=== PATIENT | male | born 1995 | race Two or more races ===

== ENCOUNTER 2017-09-15 19:05 | Inpatient (IN) | payer OTHER ==
[~2017-09-15] VITALS: Ht 177.8 cm; Wt 82.1 kg
--- NOTE | 2017-09-15 19:50 | NUR ---
BLOOD PICKED UP BY CHEMICAL COMPOUNDER HELPER
[2017-09-15 19:53] LABS: BASOPHILS # (AUTO) 0.1 /CMM (0.0-0.2); BASOPHILS % (AUTO) 1.7 % (0.0-2.0); EOSINOPHILS % (AUTO) 2.8 % (0.0-6.0); HEMATOCRIT 43 % (39-51); HEMOGLOBIN 14.4 g/dL (13.5-17.5); LYMPHOCYTES # (AUTO) 1.4 /CMM (0.8-4.8); LYMPHOCYTES % (AUTO) 17.4 % (20.0-44.0); MEAN CORPUSCULAR HGB CONC 34 g/dl (31.0-36.0); MEAN CORPUSCULAR VOLUME 91 fL (80-96); MONOCYTES # (AUTO) 0.8 /CMM (0.1-1.30); MONOCYTES % (AUTO) 9.6 % (2.0-12.0); NEUTROPHILS # (AUTO) 5.8 /CMM (1.8-8.9); NEUTROPHILS % (AUTO) 68.5 % (43.0-81.0); PLATELET COUNT (AUTO) 289 /CMM (150-450); RDW COEFFICIENT OF VARIATION 11.9 (11.5-15.0); RED BLOOD CELL COUNT(AUTO) 4.72 MIL/uL (4.5-6.0); WHITE BLOOD COUNT (AUTO) 8.3 K/uL (4.3-11.0)
--- NOTE | 2017-09-15 19:53 | NUR ---
CALLED [facility] PATTERN TECHNICIAN WAS PAGED.
--- NOTE | 2017-09-15 20:00 | NUR ---
[address]IGHW[address] PATROL OFFICER AT BEDSIDE
[2017-09-15 20:11] LABS: INR 0.9 (0.87-1.13)
[2017-09-15 20:41] LABS: CALCIUM, SERUM 9.3 mg/dL (8.5-10.1); CREATININE 0.7 mg/dL (0.6-1.3); POTASSIUM 4.2 mmol/L (3.5-5.1)
[2017-09-15] MEDS ORDERED: INSU100I26 SQ (20:55)
[2017-09-15] MEDS ORDERED: DOCU50LI17 GT (20:55)
[2017-09-15] MEDS ORDERED: METF-440 (20:55)
[2017-09-15] MEDS ORDERED: NEO/5DRO3 EACHEYE (20:55)
[2017-09-15] MEDS ORDERED: LEVE100S GT (20:55)
[2017-09-15] MEDS ORDERED: GLIM4TAB2 GT (20:55)
[2017-09-15] MEDS ORDERED: CALC-491 PO (20:55)
[2017-09-15] MEDS ORDERED: QUET50TA GT (20:55)
[2017-09-15] MEDS ORDERED: QUET100T GT (20:55)
[2017-09-15] MEDS ORDERED: PROP40TA7 GT (20:55)
[2017-09-15] MEDS ORDERED: BACL10TA GT (20:55)
--- NOTE | 2017-09-15 21:09 | NUR ---
MS RN OPENING NOTES: RECEIVED PT FROM ED DEPARTMENT. PT ARRIVED WITH A CAST ON LEFT SHOULDER/ARM. PT HAS IV ON L HAND #18G AND IS PATENT AND INTACT. PT IS S/L. PT CAME WITH MITTEN RESTRAINT ON R ARM PT IS VERY COMBATIVE AND HITTING STAFF MEMBERS. PT IS A/OX1. PT WITH SLURRED SPEECH. PT VERBALLY ABUSIVE AND COMBATIVE. PT ON ROOM AIR. BED ALARM ACTIVATED. CALL LIGHT WITHIN PT'S REACH. BED KEPT IN LOW, LOCKED POSITION, AND SIDE RAILS X 2UP. WILL CONTINUE TO MONITOR PT.
[2017-09-15 21:30] VITALS: BP 118/63
--- NOTE | 2017-09-15 22:11 | NUR ---
MS RN NOTES: INFORMED DR. JETT THAT PT IS VERBALLY ABUSIVE AND COMBATIVE WITH HIS R ARM. GOT ORDER FOR RIGHT WRIST RESTRAINTS.
[2017-09-15] MEDS ORDERED: Z GUARD REMEDY 2 OZ OINT TP PRN (22:30)
[2017-09-15] MEDS ORDERED: ONDANSETRON HCL/PF 4 MG/2 ML VIAL IVP PRN (22:30)
--- NOTE | 2017-09-15 22:50 | NUR ---
RN NOTES: NG TUBE INSERTED IN RIGHT NARE. WILL ORDER CHEST X RAY FOR CONFIRMATION.
--- NOTE | 2017-09-16 01:06 | NUR ---
MS RN NOTES: AFTER CHEST X RAY CONFIRMED, PULLED OUT A COUPLE INCHES OF TUBE OUT AND RETAPED. AUSCULTATED WITH 2 OTHER RNS TO CONFIRM SWOOSHING SOUND.
--- NOTE | 2017-09-16 01:12 | NUR ---
MS RN NOTES: [phone] AND SPOKE WITH POLI HAN. GOT INFORMATION THAT PT IS TAKING GLUCERNA 4G AT 55ML/HR.
[2017-09-16] MEDS ORDERED: GLUCERNA 1.2 1,000 ML BOTTLE NG PRN (02:00)
--- NOTE | 2017-09-16 02:00 | NUR ---
MS RN NOTES: STARTED GLUCERNA FEEDING AT 20ML/HR. WILL CONTINUE TO MONITOR AND INCREASE TOLERATED. GOAL IS 55ML/HR.
[2017-09-16 06:08] LABS: BASOPHILS % (AUTO) 0.2 % (0.0-2.0); EOSINOPHILS % (AUTO) 1.6 % (0.0-6.0); HEMATOCRIT 45 % (39-51); HEMOGLOBIN 14.9 g/dL (13.5-17.5); LYMPHOCYTES # (AUTO) 1.4 /CMM (0.8-4.8); LYMPHOCYTES % (AUTO) 18.2 % (20.0-44.0); MEAN CORPUSCULAR HGB CONC 33 g/dl (31.0-36.0); MEAN CORPUSCULAR VOLUME 95 fL (80-96); MONOCYTES # (AUTO) 0.9 /CMM (0.1-1.30); MONOCYTES % (AUTO) 10.8 % (2.0-12.0); NEUTROPHILS # (AUTO) 5.5 /CMM (1.8-8.9); NEUTROPHILS % (AUTO) 69.2 % (43.0-81.0); PLATELET COUNT (AUTO) 247 /CMM (150-450); RDW COEFFICIENT OF VARIATION 12.8 (11.5-15.0); RED BLOOD CELL COUNT(AUTO) 4.67 MIL/uL (4.5-6.0); WHITE BLOOD COUNT (AUTO) 7.9 K/uL (4.3-11.0)
[2017-09-16 06:28] LABS: ALBUMIN 3.8 g/dL (3.4-5.0); BILIRUBIN,TOTAL 0.4 mg/dL (0.2-1.0); CALCIUM, SERUM 9.2 mg/dL (8.5-10.1); CREATININE 0.7 mg/dL (0.6-1.3); MAGNESIUM 1.8 mg/dL (1.8-2.4); PHOSPHORUS 3.2 mg/dL (2.5-4.9); POTASSIUM 3.9 mmol/L (3.5-5.1); TOTAL PROTEIN, SERUM 7.6 g/dL (6.4-8.2)
--- NOTE | 2017-09-16 06:48 | NUR ---
MS RN CLOSING NOTES: ALL NEEDS WERE ATTENDED AND ANTICIPATED. PT KEPT CLEAN, DRY, AND COMFORTABLE. PT HAS R SOFT WRIST RESTRAINT PT IS ATTEMPTING TO PULL OUT NG TUBE AND IS COMBATIVE WELL. PT IS AWAKE AT THIS TIME AND IS IN SEMI-LEBLANC'S POSITION. PT IS A/OX1. PT ON NG TUBE FEEDING (GLUCERNA) AT 30ML/HR. NO RESIDUAL NOTED. PT TOLERATING WELL. BED ALARM ACTIVATED. PT PLACED ON BILATERAL SCDS. IV REMAINS INTACT. CALL LIGHT WITHIN PT'S REACH. BED KEPT IN LOW, LOCKED POSITION, AND SIDE RAILS X 2UP. WILL ENDORSE TO AM NURSE FOR ANTONIO.
[2017-09-16 08:00] VITALS: BP 114/68
[2017-09-16] MEDS: INSULIN GLARGINE, 100 UNIT/ML CARTRIDGE SQ SCH (08:10)
[2017-09-16] MEDS: NEO/POLY-B/DEXAM OPHTH SUSP 5 ML BOTTLE EACHEYE SCH ×3 (08:12→17:00)
--- NOTE | 2017-09-16 08:13 | NUR ---
MS RN NOTES PATIENT IS AWAKE, A/O X1. BREATHING ON ROOM AIR, NO SOB. IVC IN LEFT HAND PATENT AND INTACT, FLUSHES WELL. RIGHT NARE PRESENCE OF NGT, WITH FEEDING GLUCERNA. MAINTAIN HOB ELEVATED. LEFT ARM WITH CAST IN PLACE, LEFT SIDED HEMIPLEGIA. RIGHT HAND SOFT WRIST RESTRAINT, CIRCULATION IN RIGHT HAND INTACT, ABLE TO MOVE WITHOUT DIFFICULTY. PATIENT IS UNCOOPERATIVE, UNABLE TO ADMINISTER EYE DROP, MUMBLING WORDS, SPEECH UNCLEAR, KICK HIS RIGHT LEGS IN THE AIR. SAFETY MEASURE IN PLACE. WILL CONT TO MONITOR.
[2017-09-16] MEDS ORDERED: LEVETIRACETAM SOL (5 ML) 100 MG/ML UDC NG SCH (09:00)
[2017-09-16] MEDS ORDERED: METFORMIN 500 MG TABLET NG SCH (09:00)
[2017-09-16] MEDS ORDERED: QUETIAPINE FUMARATE 25 MG TABLET NG SCH (09:00)
[2017-09-16] MEDS ORDERED: CALCIUM CARB 250MG /VITAMIN D 1 UDTAB NG SCH (09:00)
[2017-09-16] MEDS ORDERED: DOCUSATE SODIUM LIQ 100 MG/10 ML UDC NG SCH (09:00)
[2017-09-16] MEDS ORDERED: GLIMEPIRIDE 4 MG TABLET NG SCH (09:00)
[2017-09-16] MEDS: PROPRANOLOL HCL 40 MG TABLET NG SCH ×2 (09:20→12:49)
[2017-09-16] MEDS: BACLOFEN (10 MG) 10 MG TABLET NG SCH ×2 (09:20→12:49)
--- NOTE | 2017-09-16 09:43 | NUR ---
PATIENT IS SEEN BY LIDA REYNOSO, HOLD NGT FEEDING AT THIS TIME, GI TO FOLLOW.
--- NOTE | 2017-09-16 10:12 | NUR ---
WOUND CARE CONSULT: PT PRESENTS WITH PATCHY BLANCHABLE PINK/RED AREAS TO LEFT HEEL AND FOOT/LOWER LEG, PRESENT ON ADMISSION. DEFER TO MD FOR SKIN CONDITION. HEELS FLOATED. SACRAL SCARRING NOTED. PT HAS CAST WITH BRACE TO LEFT ARM WITH BROWN DRAINAGE NOTED. RECOMMEND ORTHO CONSULT. PT IS INCONTINENT. CURRENT NIHARIKA SCORE IS 12 AND PT HAS LEFT SIDED HEMIPLEGIA. PT COMBATIVE WITH HIS RT ARM AND LEG AT TIMES. ISOFLEX LOW AIRLOSS BED TO BE PLACED. ALL SKIN PROTECTION RECOMMENDATIONS DISCUSSED WITH NURSING STAFF. WILL SEE PRN. MD IN AGREEMENT WITH PLAN OF CARE. Addendum: 09/16/17 at 1017 by KILLIAN MELLO WNDNU Amended: Links added.
--- NOTE | 2017-09-16 15:56 | NUR ---
S/P EGD WITH PEG PLACEMENT BY DR. PANIAGUA TODAY, PER MD OK TO USE PEG FOR FEEDS AT 2100, AND OK TO USE PEG NOW FOR MEDS. PATIENT STILL IN THE OR, AWAITING TRANSFER BACK TO THE UNIT MED SURG.
[2017-09-16 16:00] VITALS: BP 114/68
[2017-09-16] MEDS ORDERED: PHARMACY TO CHANGE PO MEDS TO GT/NG XX PRN ×2 (16:30→17:00)
[2017-09-16] MEDS: BACLOFEN (10 MG) 10 MG TABLET PEG SCH (16:40)
[2017-09-16] MEDS: METFORMIN 500 MG TABLET PEG SCH (16:41)
[2017-09-16] MEDS: GLIMEPIRIDE 4 MG TABLET PEG SCH (16:41)
[2017-09-16] MEDS: CALCIUM CARB 250MG /VITAMIN D 1 UDTAB PEG SCH (16:41)
[2017-09-16] MEDS: LEVETIRACETAM SOL (5 ML) 100 MG/ML UDC PEG SCH (16:42)
[2017-09-16] MEDS: PROPRANOLOL HCL 40 MG TABLET PEG SCH (16:42)
[2017-09-16] MEDS: QUETIAPINE FUMARATE 25 MG TABLET GT SCH (17:07)
[2017-09-16] MEDS ORDERED: QUETIAPINE FUMARATE 100 MG TABLET NG SCH (18:00)
--- NOTE | 2017-09-16 18:20 | NUR ---
MS RN CLOSING NOTES PATIENT IS UNCOOPERATIVE, NON COMPLIANT WITH MEDICATION AND TREATMENT, CONFUSED AND AGITATED WITH AGGRESSIVE BEHAVIOR AT TIMES, ATTEMPTING TO KICK HIS RIGHT LEG/FOOT DURING CARE, SOFT WRIST RESTRAINT RIGHT HAND IN PLACE, MONITORED FOR SKIN/CIRCULATION Q 2HR, INTACT. ABDOMEN PRESENCE OF GTUBE, CLAMPED AT THIS TIME. POST EGD WITH PEG PLACEMENT TODAY, ABDOMINAL BINDER IN PLACE. LEFT ARM/SHOULDER CAST INTACT, FOR ORTHO CONSULT. OK TO USE PEG FOR FEEDS AT [address] PAN[address]AGUA/GI. SAFETY MEASURE IN PLACE, MAINTAINED ASPIRATION PRECAUTION. ISOFLEX MATTRESS PROVIDED. CALL LIGHT WITHIN REACH. WILL ENDORSE TO ONCOMING RN.
--- NOTE | 2017-09-16 19:30 | NUR ---
MS RN OPENING NOTES: PATIENT IN BED, AWAKE BUT ONLY MUMBLES INCOHERENTLY, ON ROOM AIR, BREATHING EVEN AND UNLABORED. APPEARS CALM AT THIS TIME. NOTED R HAND WITH SOFT WRIST RESTRAINT, CHECKED HAND FOR CIRCULATION, CAP REFILL LESS THAN 3 SEC, NO SIGNS OF SKIN BREAKDOWN NOTED. NOTED GTUBE, CLAMPED AT THIS TIME, WITH ORDERS FOR FEEDING TO BE RESTARTED AT 2100 PM TONIGHT. ABDL BINDER IN PLACE. PROVIDED FOR COMFORT AND SAFETY. BED IN LOWEST AND LOCKED POSITION, SIDERAILS UP X 3, BED ALARMS ON. WILL CONT TO MONITOR.
[2017-09-16 20:00] VITALS: BP 110/70
[2017-09-16 20:03] VITALS: BP 110/70
[2017-09-16] MEDS: GLUCERNA 1.2 1,000 ML BOTTLE PEG PRN (21:27)
--- NOTE | 2017-09-16 21:30 | NUR ---
RN NOTES: PATIENT HAS ACTIVE BOWEL SOUNDS, AND GT CHECKED FOR PATENCY BY ASPIRATING, AND FLUSHING. TUBE FEEDING OF GLUCERNA RESTARED AT 30 ML/HR FOR NOW, WILL CHECK BACK LATER TO SEE IF PATIENT IS ABLE TO TOLERATE FEEDING BEFORE INCREASING RATE. MAINTAINED HOB ELEVATED.
--- NOTE | 2017-09-17 | NUR ---
RN NOTES: RECHECKED GT AT THIS TIME FOR RESIDUALS, NOTED 40 CC. PATIENT ON 30 ML/HR CURRENTLY, CONTINUED AT THIS RATE AND WILL RECHECK AFTER 2 HRS. MAINTAINED HOB ELEVATED.
--- NOTE | 2017-09-17 02:00 | NUR ---
RN NOTES: RECHECKED GT RESIDUAL AT 50 ML THIS TIME. BOWEL SOUNDS ACTIVE. KEPT ON 30 ML/HR RATE. MAINTAINED HOB ELEVATED. WILL CONT TO MONITOR.
[2017-09-17] MEDS: INSULIN GLARGINE, 100 UNIT/ML CARTRIDGE SQ SCH (07:13)
--- NOTE | 2017-09-17 07:30 | NUR ---
MS RN OPENING NOTES RECEIVED PATIENT IN STABLE CONDITION. IN NO APPARENT DISTRESS. BEDSIDE RAILS ARE UPX2. BED IS LOCKED AND LOWERED. CALL LIGHT IS WITHIN REACH. IV LINE IS INTACT AND PATENT. WILL CONTINUE TO MONITOR.
--- NOTE | 2017-09-17 07:44 | NUR ---
MS RN CLOSING NOTES: PATIENT IN BED, AOX1, ON ROOM AIR, BREATHING EVEN AND UNLABORED. WITH GT FEEDING AT 55 ML/HR, RESIDUAL NOTED TO BE AT 10 ML. AM BLOOD SUGAR CHECKED AT 198 MG/DL, ADMINISTERED LANTUS 18 U SQ ACB. DUE MEDS GIVEN. MORNING CARE DONE. PROVIDED FOR COMFORT AND SAFETY. BED IN LOWEST AND LOCKED POSITION, SIDERAILS UP X 3, BED ALARMS ON. WILL ENDORSE TO AM RN FOR ANTONIO.
[2017-09-17 08:00] VITALS: BP 124/75
[2017-09-17] MEDS: GLIMEPIRIDE 4 MG TABLET PEG SCH ×2 (10:47→17:18)
[2017-09-17] MEDS: METFORMIN 500 MG TABLET PEG SCH ×2 (10:47→17:18)
[2017-09-17] MEDS: PROPRANOLOL HCL 40 MG TABLET PEG SCH ×3 (10:47→17:00)
[2017-09-17] MEDS: QUETIAPINE FUMARATE 25 MG TABLET GT SCH ×2 (10:47→17:18)
[2017-09-17] MEDS: CALCIUM CARB 250MG /VITAMIN D 1 UDTAB PEG SCH ×2 (10:47→17:18)
[2017-09-17] MEDS: DOCUSATE SODIUM LIQ 100 MG/10 ML UDC PEG SCH (10:48)
[2017-09-17] MEDS: LEVETIRACETAM SOL (5 ML) 100 MG/ML UDC PEG SCH ×2 (10:48→17:19)
[2017-09-17] MEDS: BACLOFEN (10 MG) 10 MG TABLET PEG SCH ×3 (10:48→17:19)
[2017-09-17] MEDS: NEO/POLY-B/DEXAM OPHTH SUSP 5 ML BOTTLE EACHEYE SCH ×3 (10:48→17:18)
--- NOTE | 2017-09-17 12:30 | NUR ---
WOUND CARE CONSULT: PT SEEN FOR LEFT ELBOW WOUND. SPLINT WAS REMOVED BY ORTHO P.A. 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 PT WAS NOTED TO HAVE ORTHO SPLINT WITH DRAINAGE AT ELBOW REGION UPON ADMISSION. RECOMMEND SURGICAL CONSULT. PT HAS WHITE PLASTIC BRACE ON SHOULDER AND UPPER ARM. DISCUSSED WOUND CARE RECOMMENDATIONS WITH NURSING STAFF. PT ON RANDELL ISOFLEX LOW AIRLOSS BED. ALL SKIN PROTECTION MEASURES IN PLACE. WILL SEE PRN. WOOTEN IN AGREEMENT WITH PLAN OF CARE. Addendum: 09/17/17 at 1234 by KILLIAN MELLO WNDNU Amended: Links added.
--- NOTE | 2017-09-17 14:21 | NUR ---
INFORMED DR. TAYLA LINDQUIST ABOUT CRITICAL LAB BLOOD SUGAR VALUE. GAVE 15 UNITS OF INSULIN TO THE PATIENT. PATIENT REFUSES TO HAVE BLOOD SUGAR RECHECKED. WILL CONTINUE TO MONITOR.
[2017-09-17 16:00] VITALS: BP 103/57
--- NOTE | 2017-09-17 18:45 | NUR ---
MS RN CLOSING NOTES PATIENT IS IN STABLE CONDITION. IN NO APPARENT DISTRESS. BEDSIDE RAILS ARE UPX2. BED IS LOCKED AND LOWERED. CALL LIGHT IS WITHIN REACH. IV LINE IS INTACT AND PATENT. WILL ENDORSE CARE TO BUILDING DISMANTLER NURSE FOR ANTONIO.
--- NOTE | 2017-09-17 19:50 | NUR ---
RN MS OPENING NOTES RECEIVED PATIENT IN BED, ALERT AND ORIENTED X 1 , RESPIRATIONS EVEN AND UNLABORED WITH EQUAL RISE AND FALL OF CHEST, GTUBE INTACT AND FLOWING WELL, WITH PROPER PLACEMENT, HEAD OF BED ELEVATED FOR ASPIRATION PRECAUTIONS. NOTED WITH RIGHT WRIST SOFT RESTRAINTS, ABDOMINAL BINDER IN PLACE FOR SAFETY PRECAUTIONS, NOTED LEFT UPPER ARM WITH SPLINT. INTACT, IV SITE TO LEFT HAND INTACT AND PATENT, NO REDNESS,NO INFILTRATION PRESENT, NO FACIAL GRIMACING NOTED AT THIS TIME. ALL NEEDS ATTENDED AT THIS TIME, PATIENT REMAINS CLEAN AND DRY AND COMFORTABLE WILL CONTINUE TO MONITOR. ORIENTED TO STAFF AND CALL LIGHT , CALL LIGHT KEPT WITHIN REACH.
[2017-09-17 19:59] VITALS: BP 123/69
[2017-09-17 20:00] VITALS: BP 123/69
[2017-09-17] MEDS: GLUCERNA 1.2 1,000 ML BOTTLE PEG PRN (22:39)
[2017-09-18] MEDS: INSULIN GLARGINE, 100 UNIT/ML CARTRIDGE SQ SCH (06:54)
--- NOTE | 2017-09-18 07:20 | NUR ---
MSRN OPENING NOTES. PT RECEIVED A&0X1, REPORTEDLY AT BASELINE MS. PT WITH R SWR AND MITTEN R/.T REMOVAL OF LINES AND HITTING STAFF. PT TOLERATING ROOM AIR WITHOUT S/S RESP DISTRESS. PT WITHOUT S/S OF PAIN OR DISCOMFORT. PT REPOSITIONED. PT WITH L ARM/SHOULDER SPLINT AND OFFLOADING CONTINUED. PT WITH IVC AT L [facility] INTACT AND SALINE FLUSH PATENT. G TUBE AND ABDOMINAL BINDER INTACT AND OPERATIONAL. BED IN LOWEST LOCKED POSITION WITH HOB ELEVATED, HANDRAILX4 AND CALL LUQUE WITHIN REACH. WILL CONTINUE TO MONITOR CLOSELY.
--- NOTE | 2017-09-18 07:21 | NUR ---
RN MS CLOSING NOTES PATIENT IN BED, ALERT AND ORIENTED X 1 , RESPIRATIONS EVEN AND UNLABORED WITH EQUAL RISE AND FALL OF CHEST, GTUBE INTACT AND FLOWING WELL, WITH PROPER PLACEMENT, HEAD OF BED ELEVATED FOR ASPIRATION PRECAUTIONS. NOTED WITH RIGHT WRIST SOFT RESTRAINTS, ABDOMINAL BINDER IN PLACE FOR SAFETY PRECAUTIONS, NOTED LEFT UPPER ARM WITH SPLINT. INTACT, IV SITE TO LEFT HAND INTACT AND PATENT, NO REDNESS,NO INFILTRATION PRESENT, NO FACIAL GRIMACING NOTED AT THIS TIME. ALL NEEDS ATTENDED AT THIS TIME, PATIENT REMAINS CLEAN AND DRY AND COMFORTABLE WILL CONTINUE TO MONITOR. DRESSING CHANGED TO LEFT ELBOW DUE TO SOILAGE, TOLERATED WELL, CALL LIGHT KEPT WITHIN REACH ALL NEEDS ATTENDED WILL ENDORSE TO NEXT SHIFT PATIENT REMAINS COMFORTABLE AT THIS TIME.
[2017-09-18 08:00] VITALS: BP 110/74
[2017-09-18] MEDS: LEVETIRACETAM SOL (5 ML) 100 MG/ML UDC PEG SCH ×2 (09:35→17:22)
[2017-09-18] MEDS: METFORMIN 500 MG TABLET PEG SCH ×2 (09:35→17:00)
[2017-09-18] MEDS: GLIMEPIRIDE 4 MG TABLET PEG SCH ×2 (09:35→17:00)
[2017-09-18] MEDS: CALCIUM CARB 250MG /VITAMIN D 1 UDTAB PEG SCH ×2 (09:35→17:22)
[2017-09-18] MEDS: BACLOFEN (10 MG) 10 MG TABLET PEG SCH ×3 (09:35→17:22)
[2017-09-18] MEDS: DOCUSATE SODIUM LIQ 100 MG/10 ML UDC PEG SCH (09:35)
[2017-09-18] MEDS: PROPRANOLOL HCL 40 MG TABLET PEG SCH ×3 (09:36→17:22)
[2017-09-18] MEDS: NEO/POLY-B/DEXAM OPHTH SUSP 5 ML BOTTLE EACHEYE SCH ×3 (09:37→17:00)
[2017-09-18] MEDS: QUETIAPINE FUMARATE 25 MG TABLET GT SCH ×2 (09:37→17:22)
[2017-09-18 12:40] LABS: BASOPHILS % (AUTO) 0.2 % (0.0-2.0); EOSINOPHILS % (AUTO) 1.1 % (0.0-6.0); HEMATOCRIT 42 % (39-51); LYMPHOCYTES # (AUTO) 1.2 /CMM (0.8-4.8); LYMPHOCYTES % (AUTO) 12.3 % (20.0-44.0); MEAN CORPUSCULAR HGB CONC 33 g/dl (31.0-36.0); MEAN CORPUSCULAR VOLUME 95 fL (80-96); MONOCYTES # (AUTO) 1.1 /CMM (0.1-1.30); MONOCYTES % (AUTO) 10.9 % (2.0-12.0); NEUTROPHILS # (AUTO) 7.3 /CMM (1.8-8.9); NEUTROPHILS % (AUTO) 75.5 % (43.0-81.0); PLATELET COUNT (AUTO) 227 /CMM (150-450); RDW COEFFICIENT OF VARIATION 12.6 (11.5-15.0); RED BLOOD CELL COUNT(AUTO) 4.41 MIL/uL (4.5-6.0); WHITE BLOOD COUNT (AUTO) 9.7 K/uL (4.3-11.0)
[2017-09-18] MEDS: CEFTRIAXONE 2 G in IV NS 0.9% 100 ML IV SCH (13:40)
[2017-09-18] MEDS ORDERED: FEE PK DOSING 1 MIN EA MC ONE (13:51)
[2017-09-18 14:04] LABS: CALCIUM, SERUM 9.2 mg/dL (8.5-10.1); CREATININE 0.7 mg/dL (0.6-1.3); POTASSIUM 3.8 mmol/L (3.5-5.1)
[2017-09-18] MEDS: VANCOMYCIN 1.25 GM in IV D5W 500 ML IV SCH ×2 (15:16→22:19)
[2017-09-18 16:00] VITALS: BP 111/65
[2017-09-18] MEDS ORDERED: IOHEXOL-300 100 ML VIAL IV ONE (17:58)
[2017-09-18] MEDS ORDERED: CT SWABBABLE VALVE TRANS SET 1 EA INFUS.SET MC ONE (17:58)
[2017-09-18] MEDS ORDERED: IV NS 0.9% 500 ML IV ONE (17:58)
--- NOTE | 2017-09-18 18:00 | NUR ---
MSRN NOTES. PT TO RADIOLOGY.
--- NOTE | 2017-09-18 18:39 | NUR ---
MSRN NOTES. PT RETURNED FROM RADIOLOGY.
--- NOTE | 2017-09-18 18:39 | NUR ---
MSRN CLOSING NOTES. PT REMAINS A&0X1. PT WITH R SWR AND MITTEN R/.T REMOVAL OF LINES AND HITTING STAFF. PT TOLERATING ROOM AIR WITHOUT S/S RESP DISTRESS. PT WITHOUT S/S OF PAIN OR DISCOMFORT. PT WITH L ARM/SHOULDER SPLINT AND OFFLOADING CONTINUED. PT WITH IVC AT L [facility] INTACT AND OPERATIONAL AND IVC AT RIGHT UA/SHOULDER G#18 SL. G TUBE AND ABDOMINAL BINDER INTACT AND OPERATIONAL, RESIDUALS 5CC DURING SHIFT. BED IN LOWEST LOCKED POSITION WITH HOB ELEVATED, HANDRAILX4 AND CALL LUQUE WITHIN REACH. WILL ENDORSE TO NIGHT NURSE AT BEDSIDE FOR ANTONIO.
--- NOTE | 2017-09-18 19:30 | NUR ---
PT A&0X1. PT WITH RIGHT WRIST SOFT RESTRAIN AND RIGHT HAND MITTEN. PT ON ROOM AIR WITHOUT S/S RESP DISTRESS. PT WITHOUT S/S OF PAIN OR DISCOMFORT. PT HAS PEG WITH ON ONGOING TUBE FEEDING OF GLUCERNA 1.2 55ML/H TOLERATED WELL WITH RESIDUAL 30 ML.ABDOMEN SOFT TO TACH WITH ACTIVE BS WITH ABD BINDER IN PLACE POSITION WITH HOB ELEVATED, HANDRAIL X3, BED IN LOW POSITION, LOCKED AND CALL LUQUE WITHIN REACH.
[2017-09-18 20:00] VITALS: BP 116/73
--- NOTE | 2017-09-18 20:10 | NUR ---
RN NOTES: RECEIVED PT WITH RIGHT HAND MITTENS AND RIGHT SOFT WRIST RESTRAINT IN PLACED,PT'S RIGHT ARM IS VERY STRONG THAT HE TRIES TO HIT COOPERATIVE EDUCATION DIRECTOR AND CHAPLAINCY WHEN PROVIDING CARE, ALSO HE MANAGE TO PULL OUT HIS GTUBE,PT IS ALERT BUT CONFUSED, SLURRED SPEECH BUT MOST OF THE TIME NON VERBAL, PT EVEN TRIES TO KICK STAFF. RESTRAINT PROTOCOL FOLLOWED, PT NOTED TO HAVE GOOD CAPILLARY REFILL, ABLE TO MOVE AND WIGGLE ARMS AND HAND, NO S/S OF IMPEDIMENT IN CIRCULATION NOTED. LEFT SHOULDER NOTED TO HAVE ENAMORADO BRACE /SPLINT IN PLACED.
[2017-09-18 20:22] VITALS: BP 116/73
--- NOTE | 2017-09-18 20:30 | NUR ---
RN NOTES: ABDOMINAL BINDER IN PLACED PROTECTION FOR PT NOT TO PULL OUT GTUBE.
--- NOTE | 2017-09-18 21:00 | NUR ---
RN NOTES: KEPT SIDE RAILS PADDED, SUCTION SET UP SECURED, PT HAS HX OF SEIZURE. ALSO PER REPORT TO HOLD METFORMIN X48 R/T IV CONTRAST.
[2017-09-19] MEDS: GLUCERNA 1.2 1,000 ML BOTTLE PEG PRN ×2 (01:47→20:54)
--- NOTE | 2017-09-19 04:00 | NUR ---
RN NOTES: WOUND CARE PERFORMED, WOUND CULTURE DONE, SENT TO LAB ORDERED BY DR STEPHEN
--- NOTE | 2017-09-19 05:45 | NUR ---
RN NOTES: REMOVED RIGHT HAND MITTEN, PT BEHAVE FOR AN HOUR,DIDNT KICK OR HIT STAFF WHILE DOING BED BATH AND DRESSING CHANGES, WILL LEAVE SOFT WRIST RESTRAINT ON THE RIGHT ARM, TO PREVENT PT FROM PULLING OUT PEG TUBE AND IV ACCESS, RESTRAINT PROTOCOL FOLLOWED.
[2017-09-19] MEDS: INSULIN GLARGINE, 100 UNIT/ML CARTRIDGE SQ SCH (06:14)
[2017-09-19] MEDS: VANCOMYCIN 1.25 GM in IV D5W 500 ML IV SCH ×3 (06:29→23:18)
--- NOTE | 2017-09-19 06:49 | NUR ---
RN CLOSING NOTES PT REMAINS A/O X1, ON ROOM AIR WITH NO DISTRESS NOTED. PT G-TUBE FEEDING GLUCERNA 1.2 RATE 55ML/HR WELL TOLERATES WITH RESIDUAL 10 ML. PT RIGHT WRIST SOFT RESTRAINT IN PLACE. NO S/S OF IMPEDIMENT IN CIRCULATION NOTED. LEFT SHOULDER ENAMORADO BRACE REMAIN IN PLACE, DRESSING ON LEFT ELBOW REMAINS C/D/I.VS ARE STABLE, NEEDS ATTENDED. BED IN LOW AND LOCKED POSITION, CALL LIGHT WITHIN EASY REACH. WILL ENDORSE TO DAY RN FOR CONTINUITY OF CARE.
[2017-09-19 08:00] VITALS: BP 110/76
--- NOTE | 2017-09-19 08:00 | NUR ---
m/s forge press operator: initial assessment received pt in bed awake, speech garble, unable to understand. released and repositioned right wrist restraint for circulation. pt easily agitated and resistive care. reality orientation provided prn. hob elevated. tolerating g-tube feeding. no residual obtained. will continue to monitor.
[2017-09-19] MEDS: LEVETIRACETAM SOL (5 ML) 100 MG/ML UDC PEG SCH ×2 (09:08→16:10)
[2017-09-19] MEDS: QUETIAPINE FUMARATE 25 MG TABLET GT SCH ×2 (09:09→16:09)
[2017-09-19] MEDS: CALCIUM CARB 250MG /VITAMIN D 1 UDTAB PEG SCH ×2 (09:09→16:10)
[2017-09-19] MEDS: DOCUSATE SODIUM LIQ 100 MG/10 ML UDC PEG SCH (09:09)
[2017-09-19] MEDS: PROPRANOLOL HCL 40 MG TABLET PEG SCH ×3 (09:09→16:10)
[2017-09-19] MEDS: GLIMEPIRIDE 4 MG TABLET PEG SCH ×2 (09:09→16:09)
[2017-09-19] MEDS: BACLOFEN (10 MG) 10 MG TABLET PEG SCH ×3 (09:09→16:10)
[2017-09-19] MEDS: NEO/POLY-B/DEXAM OPHTH SUSP 5 ML BOTTLE EACHEYE SCH ×3 (09:10→16:13)
--- NOTE | 2017-09-19 10:00 | NUR ---
m/s welder experimental: notes pt remains resistive to care during am care rendered. pt starts to grab, scratch, and hit staff during care. reality orientation provided prn. will continue to monitor.
[2017-09-19] MEDS: CEFTRIAXONE 2 G in IV NS 0.9% 100 ML IV SCH (13:10)
--- NOTE | 2017-09-19 14:18 | NUR ---
m/s equip tech: notes vanco trough drawn at this time.
--- NOTE | 2017-09-19 15:30 | NUR ---
m/s welding machine operator electro gas: notes grandmother visiting at this time. pt appears comfortable and in no apparent distress.
--- NOTE | 2017-09-19 15:52 | NUR ---
m/s slate splitter: notes vanco trough=14 resulted. carla (pharmacist) notified and made aware. awaiting for vanco ivpb med.
[2017-09-19 16:00] VITALS: BP 105/70
[2017-09-19] MEDS: LACTOBACILLUS RHAMNOSUS GG 1 EACH CAP.SPRINK PO SCH (16:10)
--- NOTE | 2017-09-19 17:00 | NUR ---
m/s director toxicology: notes grandmother left at this time. pt sounds asleep. released and repositioned right wrist restraint. hob elevated. tolerating g-tube feeding. will continue to monitor.
--- NOTE | 2017-09-19 19:00 | NUR ---
m/s marble polisher hand: notes report given to elmer (rn) for continuity of care.
--- NOTE | 2017-09-19 19:30 | NUR ---
MS RN OPENING NOTES PT A&0X1. PT WITH RIGHT WRIST SOFT RESTRAIN . PT ON ROOM AIR WITHOUT S/S RESP DISTRESS. PT WITHOUT S/S OF PAIN OR DISCOMFORT. PT HAS PEG WITH ON ONGOING TUBE FEEDING OF GLUCERNA 1.2 60 ML/H.ABDOMEN SOFT TO TACH WITH ACTIVE BS WITH ABD BINDER IN PLACE POSITION WITH HOB ELEVATED, HANDRAIL X3, BED IN LOW POSITION, LOCKED AND CALL LIGHT WITHIN REACH.
[2017-09-19 20:00] VITALS: BP 134/75
--- NOTE | 2017-09-19 20:55 | NUR ---
G-TUBE RESIDUAL CHECKED , NO RESIDUAL NOTED , G-TUBE FLUSHING WELL. INCREASED FEEDING RATE F TO 65 ML/H THIS IS THE GOAL FOR NUTRITION. WILL MONITOR HOW PT WILL TOLERATE
[2017-09-20] MEDS: INSULIN GLARGINE, 100 UNIT/ML CARTRIDGE SQ SCH (06:06)
--- NOTE | 2017-09-20 06:46 | NUR ---
RN CLOSING NOTES PT REMAINS A/O X1, ON ROOM AIR WITH NO DISTRESS NOTED. PT G-TUBE REMAINS IN PLACED, ABDOMINAL BINDER IN PLACED, RECEIVING FEEDING GLUCERNA 1.2 RATE 65ML/HR WELL TOLERATES WITH RESIDUAL 10 ML. PT RIGHT WRIST SOFT RESTRAINT IN PLACE. NO S/S OF IMPEDIMENT IN CIRCULATION NOTED.IV LINE LH G18 INTACT AND PATENT. LEFT SHOULDER ENAMORADO BRACE REMAIN IN PLACE, DRESSING ON LEFT ELBOW REMAINS C/D/I.VS ARE STABLE, NEEDS ATTENDED. AWAITING RESULT OF VANCO TROUGH. BED IN LOW AND LOCKED POSITION, CALL LIGHT WITHIN EASY REACH. WILL ENDORSE TO DAY RN FOR CONTINUITY OF CARE.
[2017-09-20 06:56] LABS: CALCIUM, SERUM 9.6 mg/dL (8.5-10.1); CREATININE 0.6 mg/dL (0.6-1.3); POTASSIUM 3.8 mmol/L (3.5-5.1)
--- NOTE | 2017-09-20 07:20 | NUR ---
RN OPENING NOTES RECEIVED PATIENT IN BED AWAKE,SPEECH GARBLED,UNABLE TO UNDERSTAND. NO ACUTE DISTRESS,NO SOB.NO S/S OF PAIN OR DISCOMFORT. PATIENT ON RIGHT WRIST SOFT RESTRAINT, RELEASE AND REPOSITION FOR CIRCULATION.PATIENT IS CALM. REALITY ORIENTATION PROVIDED NEEDED. HOB ELEVATED. GTUBE IN PLACE,FEEDING AT 65ML/HR, TOLERATED WELL.BED IN LOW/LOCKED POSITION,CALL LIGHT IN REACH. WILL CONTINUE TO MONITOR ACCORDINGLY.
[2017-09-20 08:00] VITALS: BP 106/57
[2017-09-20] MEDS: LACTOBACILLUS RHAMNOSUS GG 1 EACH CAP.SPRINK PO SCH ×2 (08:34→17:19)
[2017-09-20] MEDS: QUETIAPINE FUMARATE 25 MG TABLET GT SCH ×2 (08:35→17:22)
[2017-09-20] MEDS: PROPRANOLOL HCL 40 MG TABLET PEG SCH ×3 (08:36→17:21)
[2017-09-20] MEDS: CALCIUM CARB 250MG /VITAMIN D 1 UDTAB PEG SCH ×2 (08:37→17:19)
[2017-09-20] MEDS: BACLOFEN (10 MG) 10 MG TABLET PEG SCH ×3 (08:37→17:19)
[2017-09-20] MEDS: GLIMEPIRIDE 4 MG TABLET PEG SCH ×2 (08:38→17:19)
[2017-09-20] MEDS: LEVETIRACETAM SOL (5 ML) 100 MG/ML UDC PEG SCH ×2 (08:38→17:22)
[2017-09-20] MEDS: DOCUSATE SODIUM LIQ 100 MG/10 ML UDC PEG SCH (08:38)
[2017-09-20] MEDS: NEO/POLY-B/DEXAM OPHTH SUSP 5 ML BOTTLE EACHEYE SCH ×3 (08:41→17:00)
[2017-09-20] MEDS: VANCOMYCIN 1 GM in IV D5W 250 ML IV SCH ×2 (10:07→17:32)
--- NOTE | 2017-09-20 10:07 | NUR ---
RN NOTES CALLED [facility](PHARMACY) REGARDING VANCOMYCIN TROUGH TODAY IS 20. HE SAID THAT HE CHANGED THE DOSE. VERIFIED THAT THE VANCO 1000 SCHEDULED DOSE IS THE NEW DOSE/ CHANGED DOSE, HE SAID "YES"
[2017-09-20] MEDS: CEFTRIAXONE 2 G in IV NS 0.9% 100 ML IV SCH (12:43)
--- NOTE | 2017-09-20 14:00 | NUR ---
RN NOTES PATIENT REMAINS RESISTIVE AND COMBATIVE TO CARE DURING AM CARE RENDERED. PATIENT STARTED ON HITTING AND CURSING ON STAFF DURING CARE. REALITY ORIENTATION PROVIDED NEEDED. WILL CONTINUE TO MONITOR ACCORDINGLY
[2017-09-20 16:00] VITALS: BP 110/59
[2017-09-20] MEDS: GLUCERNA 1.2 1,000 ML BOTTLE PEG PRN (17:23)
--- NOTE | 2017-09-20 18:51 | NUR ---
RN CLOSING NOTES PATIENT IN STABLE CONDITION. GRANDMOTHER AT BEDSIDE. ALL NEEDS ATTENDED AND PROVIDED. KEPT PATIENT CLEAN AND COMFORTABLE. TURNED AND REPOSITIONED PATIENT EVERY 2 HOURS NEEDED. PATIENT REMAIN ON RESTRAINT DUE TO COMBATIVENESS AND PULLING LINES, CHECKED SKIN AND CIRCULATION EVERY 2HOURS NEEDED. WOUND CARE RENDERED. KEPT PATIENT SAFE. BED IN LOW/LOCKED POSITION, HOB ELEVATED, SIDERAILS UPX2, CALL LIGHT IN REACH. ENDORSED TO NIGHT RN FOR ANOTNIO.
--- NOTE | 2017-09-20 19:41 | NUR ---
MS RN OPENING NOTES PT A&0X1. fAMILY AT BEDSIDE , ON RIGHT WRIST SOFT RESTRAIN . PT ON ROOM AIR WITHOUT S/S RESP DISTRESS. PT WITHOUT S/S OF PAIN OR DISCOMFORT. PT HAS PEG WITH ON ONGOING TUBE FEEDING OF GLUCERNA 1.2 60 ML/H.ABDOMEN SOFT TO TACH WITH ACTIVE BS WITH ABD BINDER IN PLACE POSITION WITH HOB ELEVATED, HANDRAIL X3, BED IN LOW POSITION, LOCKED AND CALL LIGHT WITHIN REACH.
[2017-09-20 20:00] VITALS: BP 105/58
--- NOTE | 2017-09-20 20:00 | NUR ---
RN NOTES: RESTRAINT PROTOCOL INITIATED. PT ABLE TO MOVE AND WIGGLE ARMS, NOTED GOOD CAPILLARY REFILL NOTED, NO S/S OF IMPEDIMENT IN CIRCULATION NOTED
--- NOTE | 2017-09-20 22:00 | NUR ---
RN NOTES: ASSISTED APRON MAN IN PROVIDING BED BATH TO THE PT, LEFT ELBOW WOUND DRESSING CHANGED PROVIDED AT THIS TIME.
--- NOTE | 2017-09-21 | NUR ---
RN NOTES: FLUSHED PT'S GTUBE WITH 60ML OF WATER
[2017-09-21] MEDS: VANCOMYCIN 1 GM in IV D5W 250 ML IV SCH ×4 (01:25→18:06)
--- NOTE | 2017-09-21 04:30 | NUR ---
AM CARE AND WOUND DRESSING: ASSISTED AIRFRAME AND POWERPLANT MECHANIC IN PERFORMING BED BATH, WOUND CARE DONE ORDERED, TOOK PICTURES FOR SKIN ISSUES PT POSSIBLY GOING BACK TO [facility] IN AM.
[2017-09-21] MEDS: INSULIN GLARGINE, 100 UNIT/ML CARTRIDGE SQ SCH (06:28)
--- NOTE | 2017-09-21 06:47 | NUR ---
RN CLOSING NOTES PT REMAINS A/O X1, ON ROOM AIR WITH NO DISTRESS NOTED. ABDOMINAL BINDER IN PLACE, PT G-TUBE REMAINS IN PLACED, RECEIVING FEEDING GLUCERNA 1.2 RATE 65ML/HR WELL TOLERATES WITH NO RESIDUAL. PT RIGHT WRIST SOFT RESTRAINT IN PLACE. NO S/S OF IMPEDIMENT IN CIRCULATION NOTED.IV LINE L HAND G18 INTACT AND PATENT. LEFT SHOULDER ENAMORADO BRACE REMAIN IN PLACE, DRESSING ON LEFT ELBOW REMAINS C/D/I.VS ARE STABLE, NEEDS ATTENDED. POSSIBLE DC BACK TO [facility] AIR [facility],EXIT CARE COMPLETED, PICTURES TAKEN. BED IN LOW AND LOCKED POSITION, CALL LIGHT WITHIN EASY REACH. WILL ENDORSE TO DAY RN FOR CONTINUITY OF CARE.
--- NOTE | 2017-09-21 07:28 | NUR ---
MS RN OPENING NOTES RECEIVED PATIENT AWAKE, ALERT AND RESPONSIVE TO TACTILE AND VERBAL STIMULI. ON ROOM AIR, BREATHING EVEN AND UNLABORED WITH NO SIGNS OF DISTRESS NOTED. RIGHT WRIST SOFT RESTRAINT IN PLACE. IV ACCESS ON LEFT HAND INTACT AND PATENT. PT WITH G-TUBE IN PLACE AND PATENT WITH FEEDING OF GLUCERNA 1.2 RUNNING @ 65ML/HR, TOLERATING WELL. ASPIRATION PRECAUTIONS MAINTAINED. ABDOMEN SOFT, NON-DISTENDED WITH ACTIVE BOWEL SOUNDS, ABD BINDER IN PLACE FOR PROTECTION. HOB ELEVATED. BED IN LOW/LOCKED POSITION WITH SIDE-RAILS UP X3. CALL LIGHT WITHIN REACH. ALL SAFETY MEASURES IN PLACE. WILL CONTINUE TO MONITOR PT.
[2017-09-21 07:58] LABS: CALCIUM, SERUM 9.5 mg/dL (8.5-10.1); CREATININE 0.7 mg/dL (0.6-1.3); POTASSIUM 4.2 mmol/L (3.5-5.1)
[2017-09-21 08:00] VITALS: BP 117/69
[2017-09-21] MEDS: QUETIAPINE FUMARATE 25 MG TABLET GT SCH ×2 (08:35→17:45)
[2017-09-21] MEDS: CALCIUM CARB 250MG /VITAMIN D 1 UDTAB PEG SCH ×2 (08:35→17:45)
[2017-09-21] MEDS: BACLOFEN (10 MG) 10 MG TABLET PEG SCH ×3 (08:35→17:45)
[2017-09-21] MEDS: DOCUSATE SODIUM LIQ 100 MG/10 ML UDC PEG SCH (08:35)
[2017-09-21] MEDS: LEVETIRACETAM SOL (5 ML) 100 MG/ML UDC PEG SCH ×2 (08:35→17:45)
[2017-09-21] MEDS: GLIMEPIRIDE 4 MG TABLET PEG SCH ×2 (08:35→17:45)
[2017-09-21] MEDS: PROPRANOLOL HCL 40 MG TABLET PEG SCH ×3 (08:36→17:46)
[2017-09-21] MEDS: LACTOBACILLUS RHAMNOSUS GG 1 EACH CAP.SPRINK PO SCH ×2 (08:36→17:45)
[2017-09-21] MEDS: NEO/POLY-B/DEXAM OPHTH SUSP 5 ML BOTTLE EACHEYE SCH ×3 (08:41→17:46)
[2017-09-21] MEDS: GLUCERNA 1.2 1,000 ML BOTTLE PEG PRN (10:53)
[2017-09-21] MEDS: CEFTRIAXONE 2 G in IV NS 0.9% 100 ML IV SCH (12:09)
[2017-09-21 16:00] VITALS: BP 118/69
[2017-09-21 17:46] VITALS: BP 118/69
--- NOTE | 2017-09-21 19:00 | NUR ---
MS RN CLOSING NOTES PATIENT IN BED AWAKE AND LYING AT MODERATE HIGH BACKREST POSITION. ALERT AND RESPONSIVE, NO SIGNS OF DISTRESS NOTED DURING THE DAY. MAINTAINED ON SOFT RIGHT WRIST RESTRAINT. G-TUBE INTACT AND PATENT WITH FEEDING ONGOING AT PRESCRIBED DOSE, ABDOMINAL BINDER KEPT IN PLACE FOR PROTECTION OF G-TUBE.. IV ACCESS INTACT AND PATENT,ABX VANCOMYCIN STILL RUNNING. ALL SAFETY MEASURES MAINTAINED. ALL NEEDS AND CARE PROVIDED WELL. ENDORSED TO SUPERVISOR BURLING AND JOINING TAMARA THAT PT WILL BE DISCHARGED TO [facility]. EXIT CARE DONE.
--- NOTE | 2017-09-21 19:15 | NUR ---
MS/RN NOTES RECEIVED PT. LYING IN BED. PT. IS AWAKE, ALERT AND ORIENTED X1. PT. IS CONFUSED. BREATHING EVEN AND UNLABORED ON ROOM AIR. NO SOB, RESPIRATORY DISTRESS OR S/S OF PAIN NOTED AT THIS TIME. PT. WITH LEFT HAND 18 GAUGE PERIPHERAL IV PRESENT, PATENT AND INTACT ADMINISTERING TO PT. VANCOMYCIN MEDICATION. PT. WITH G-TUBE PRESENT, PATENT AND INTACT ADMINISTERING TO PT. GLUCERNA 1.2 @ 55 ML/HR. PT. TOLERATING FEEDING WELL, NO RESIDUAL NOTED AT THIS TIME. PT. WITH RIGHT SIFT WRIST RESTRAINT PRESENT AND INTACT. CIRCULATION CHECK PERFORMED. PER DAYSHIFT NURSE PT. IS AWAITING AMBULANCE PICKUP, PT. TO BE DISCHARGED TO [facility]. PER DAYSHIFT NURSE MIKKI REPORT GIVEN TO POLI AT [facility]. PER DAYSHIFT NURSE MIKKI PT. EXITCARE AND BELONGINGS LIST COMPLETED, ORIGINALS SIGNED AND PLACED IN CHART. COPY WILL BE PROVIDED TO AMBULANCE TRANSPORT. WILL CONTINUE TO MONITOR.
--- NOTE | 2017-09-21 20:10 | NUR ---
MS/RN NOTES PT. AMBULANCE TRANSPORT ARRIVED. PT. IN STABLE CONDITION. VITAL SIGNS WNL. PT. IS LYING IN BED. PT. IS AWAKE, ALERT AND ORIENTED X1. PT. IS CONFUSED. BREATHING EVEN AND UNLABORED ON ROOM AIR. NO SOB, RESPIRATORY DISTRESS OR S/S OF PAIN NOTED AT THIS TIME. REMOVED PT. IV ACCESS. NO BLEEDING OR S/S OF INFECTION NOTED. REMOVED PT. ID BAND. PT. EXITCARE AND BELONGINGS LIST COMPLETED, ORIGINALS LOCATED IN PT. CHART, COPY PROVIDED TO AMBULANCE TRANSPORT. PT. LEFT THE FLOOR VIA GURNEY ESCORTED BY AMBULANCE TRANSPORT AT 2009.
== END 2017-09-21 20:10 | DRG 344 ==
LOC: ER 19:07 → MED 20:16
PROVIDERS: ADMIT Nurse Practitioner Acute Care; ATTEND Nurse Practitioner Acute Care
PROC: 0DJ08ZZ Inspection of Upper Intestinal Tract, Via Natural or Artificial Opening Endoscopic (ICD-10-PCS; principal; 2017-09-16 14:30)
PROC: 0DH63UZ Insertion of Feeding Device into Stomach, Percutaneous Approach (ICD-10-PCS; principal; 2017-09-16 14:30)
DX: M00.9 Pyogenic arthritis, unspecified (principal); L89.024 Pressure ulcer of left elbow, stage 4; R53.2 Functional quadriplegia; R13.10 Dysphagia, unspecified; K94.23 Gastrostomy malfunction; Y83.3 Surgical operation with formation of external stoma as the cause of abnormal reaction of the patient, or of later complication, without mention of misadventure at the time of the procedure; Y82.9 Unspecified medical devices associated with adverse incidents; Y92.129 Unspecified place in nursing home as the place of occurrence of the external cause; G40.909 Epilepsy, unspecified, not intractable, without status epilepticus; K29.80 Duodenitis without bleeding; K29.70 Gastritis, unspecified, without bleeding; E11.65 Type 2 diabetes mellitus with hyperglycemia; I10 Essential (primary) hypertension; Z87.820 Personal history of traumatic brain injury; F29 Unspecified psychosis not due to a substance or known physiological condition; G81.94 Hemiplegia, unspecified affecting left nondominant side; Z79.84 Long term (current) use of oral hypoglycemic drugs; S42.202G Unspecified fracture of upper end of left humerus, subsequent encounter for fracture with delayed healing; X58.XXXD Exposure to other specified factors, subsequent encounter
CPT/HCPCS: 36415; 43246; 71045-TC; 73020; 73060-TC; 73201-TC; 80048-TC; 80053-TC; 80061-TC; 80202-TC; 82962-TC; 83605-TC; 83735-TC; 84100-TC; 85025-TC; 85652-TC; 85730-TC; 86140-TC; 87040-TC; 87070-TC; 87081-TC; A4606; A6253; A6402; A6403; J0690; J0696; J1815; J1953; J2001; J3370; J3490; J7030; J7040; J7050; J7060; Q9967; Z7610

== ENCOUNTER 2017-10-14 11:59 | Emergency (ER) | payer OTHER ==
[~2017-10-14] VITALS: Ht 167.6 cm; Wt 72.6 kg
[~2017-10-14 11:59] MED LIST: BACL10TA GT; CALC-491 PO; DOCU50LI17 GT; GLIM4TAB2 GT; INSU100I26 SQ; LEVE100S GT; METF500T6; NEO/5DRO3 EACHEYE; PROP40TA7 GT; QUET100T GT; QUET50TA GT
--- NOTE | 2017-10-14 12:16 | NUR ---
DR ZAZUETA IS SPEAKING TO PT'S PMD DR. HERNÁNDEZ.
--- NOTE | 2017-10-14 12:16 | NUR ---
CALLED [facility], RE: GTUBE SIZE.
--- NOTE | 2017-10-14 12:17 | NUR ---
CALLED , , TRANSFERRED CALL TO
[2017-10-14] MEDS ORDERED: DIATR MEGLU/DIATRIZOATE SODIUM 30 ML BOTTLE (GASTROGRAPHIN) PO ONE (12:30)
[2017-10-14] MEDS ORDERED: DIATR MEGLU/DIATRIZOATE SODIUM 30 ML BOTTLE (GASTROGRAPHIN) ONE (12:39)
--- NOTE | 2017-10-14 12:45 | NUR ---
KUB DONE AT BEDSIDE.
--- NOTE | 2017-10-14 13:04 | NUR ---
CALLED [facility] FOR TRANSPORT BACK TO [facility], ETA 1542, TRIP [id number]
--- NOTE | 2017-10-14 13:28 | NUR ---
PT IS WATCHING TV AND HAS A PILLOW FLOATING HIS LLE/HEEL. A WAS ALSO PLACED UNDER HIS LEFT SIDE.
--- NOTE | 2017-10-14 13:36 | NUR ---
NEW ETA FROM [facility], [phone]
--- NOTE | 2017-10-14 13:54 | NUR ---
PT IS C/O RLE PAIN AND WANTS HIS LEG MASSAGED. MASSAGED PT'S RLE.
--- NOTE | 2017-10-14 13:55 | NUR ---
PT'S GRANDMOTHER ARRIVED AND IS AT THE BEDSIDE.
[2017-10-14 14:37] VITALS: BP 122/57
== END 2017-10-14 14:38 | disposition home or self-care (01) ==
LOC: ER 12:01
DX: K94.29 Other complications of gastrostomy (principal); I10 Essential (primary) hypertension; E11.9 Type 2 diabetes mellitus without complications; F29 Unspecified psychosis not due to a substance or known physiological condition; G82.20 Paraplegia, unspecified; Z87.820 Personal history of traumatic brain injury; Z79.4 Long term (current) use of insulin
CPT/HCPCS: 74018; A4606; Q9963; Z7610

== ENCOUNTER 2017-12-17 22:37 | Emergency (ER) | payer OTHER ==
[~2017-12-17] VITALS: Ht 177.8 cm; Wt 83.9 kg
[2017-12-17] MEDS ORDERED: DIATR MEGLU/DIATRIZOATE SODIUM 30 ML BOTTLE (GASTROGRAPHIN) ONE (23:32)
--- NOTE | 2017-12-18 00:20 | NUR ---
AMBULANCE SUMMONED. ETA 0200. TRIP # [id number]
[2017-12-18 00:37] VITALS: BP 104/62
== END 2017-12-18 03:10 | disposition home or self-care (01) ==
LOC: ER 22:41
DX: Z43.1 Encounter for attention to gastrostomy (principal); I10 Essential (primary) hypertension; E11.9 Type 2 diabetes mellitus without complications; F29 Unspecified psychosis not due to a substance or known physiological condition; Z79.84 Long term (current) use of oral hypoglycemic drugs; Z79.4 Long term (current) use of insulin; Z79.899 Other long term (current) drug therapy
CPT/HCPCS: 43760; 74018; 99284; A4606; Q9963; Z7610

== ENCOUNTER 2018-01-23 12:37 | Emergency (ER) ==
[~2018-01-23] VITALS: Ht 170.2 cm; Wt 90.7 kg
[~2018-01-23 12:37] MED LIST changes: +METF-440; -METF500T6
--- NOTE | 2018-01-23 12:55 | NUR ---
[facility]IB EMS S/P PATIENT PULLED OUT HIS G- TUBE THIS MONRING. ALERT AND OREINTED X1. BREATHING EVEN AND UNALBORED WITH NO DISTRESS NOTED. SKIN WARM TO TOUCH. WAITING TO BE SEEN BY
[2018-01-23] MEDS ORDERED: DIATR MEGLU/DIATRIZOATE SODIUM 30 ML BOTTLE (GASTROGRAPHIN) PO ONE (13:00)
--- NOTE | 2018-01-23 13:04 | NUR ---
DR JHAVERI AT BEDSIDE TO REINSERT G-TUBE
[2018-01-23] MEDS ORDERED: DIATR MEGLU/DIATRIZOATE SODIUM 30 ML BOTTLE (GASTROGRAPHIN) ONE (13:41)
--- NOTE | 2018-01-23 13:59 | NUR ---
X-RAY TECH AT BEDSIDE
--- NOTE | 2018-01-23 14:27 | NUR ---
[facility] ETA 1445 TRANSPORT #[id number]
[2018-01-23 15:59] VITALS: BP 122/70
--- NOTE | 2018-01-23 16:05 | NUR ---
Patient discharged to home in stable condition. Written and verbal after care instructions given. EMS AT [facility] TO [facility] TRANSFERRER PATIENT BACK TO FACILITY.
== END 2018-01-23 16:07 | disposition home or self-care (01) ==
LOC: ER 12:39
DX: Z43.1 Encounter for attention to gastrostomy (principal); I10 Essential (primary) hypertension; E11.9 Type 2 diabetes mellitus without complications; F29 Unspecified psychosis not due to a substance or known physiological condition; G82.20 Paraplegia, unspecified; Z79.84 Long term (current) use of oral hypoglycemic drugs; Z79.4 Long term (current) use of insulin; Z79.899 Other long term (current) drug therapy
CPT/HCPCS: 43760; 74018; 99284; Q9963 ×2; A4606; Z7610

== ENCOUNTER 2019-01-03 13:11 | Emergency (ER) | payer MEDICAID, OTHER ==
[~2019-01-03] VITALS: Ht 167.6 cm; Wt 81.6 kg
--- NOTE | 2019-01-03 13:35 | NUR ---
RAY [facility] [address] from [facility] "Pulled GT -20G" patient transferred to bed, no distress noted. Vitals stable. No s/sx of bleeding noted.
[2019-01-03] MEDS ORDERED: DIATR MEGLU/DIATRIZOATE SODIUM 30 ML BOTTLE (GASTROGRAPHIN) ONE (14:15)
[2019-01-03] MEDS ORDERED: DIATR MEGLU/DIATRIZOATE SODIUM 120 ML BOTTLE (GASTROGRAPHIN) PO ONE (14:30)
--- NOTE | 2019-01-03 15:40 | NUR ---
[facility] ETA 8830 TRIP#[id number]
--- NOTE | 2019-01-03 15:40 | NUR ---
AMBULANCE ETA 1706
--- NOTE | 2019-01-03 16:58 | NUR ---
UPDATED ETA 1713
--- NOTE | 2019-01-03 17:39 | NUR ---
PATIENT IN NO DISTRESS. NEEDS ATTENDED. GTUBE PLACEMENT CONFIRMED. FAMILY AT BEDSIDE. DISCHARGE ISNTRUCTIONS PROVIDED AND VERBALIZED UNDERSTANDING TO [employer] WORKER AND FAMILY.
[2019-01-03 17:42] VITALS: BP 119/76
== END 2019-01-03 17:42 | disposition home or self-care (01) ==
LOC: ER 13:15
DX: Z43.1 Encounter for attention to gastrostomy (principal); I10 Essential (primary) hypertension; E11.9 Type 2 diabetes mellitus without complications; F29 Unspecified psychosis not due to a substance or known physiological condition; Z87.820 Personal history of traumatic brain injury; Z79.4 Long term (current) use of insulin
CPT/HCPCS: 43762; 74018; 99284; Q9963 ×2